=== PATIENT | male | born 1995 | race American Indian/Alaskan Native ===

== ENCOUNTER 2021-05-28 22:35 | Emergency (ER) | payer SELFPAY ==
--- NOTE | 2021-05-29 00:22 | Emergency Department Report ---
ED Lower Extremity HPI - General Chief Complaint: Extremity Injury, Lower Stated Complaint: KNEE PAIN Time Seen by Provider: 05/29/21 00:10 Source: patient Mode of arrival: Ambulatory Limitations: No Limitations - History of Present Illness Initial Comments: Patient is a 26-year-old male that presents emergency room with complaints of left knee pain. Patient states it started 24 hours ago. Patient states the pain is worsening. Patient states he is unable to walk normally. Patient states walking causes him pain. Patient states he is only used the bandages. Patient states he has not taken ibuprofen or Tylenol. Patient denies other injury. Patient states when the injury happened he fell to his knee. Patient denies other trauma. Patient denies other injury. Patient denies loss of consciousness. Patient denies recent travel. Patient denies recent international travel. Patient denies exposure to the novel coronavirus. Patient denies sick contacts. Patient denies fever and chills. Patient denies cough. Patient denies diarrhea. Patient denies coming in contact with anybody with symptoms of the novel coronavirus. Patient states she has not vaccinated gets COVID-19. Complaint: knee injury -: Sudden, days(s) Injury: Knee: Left Type of Injury: eversion Place: street/outdoors Severity: severe Severity scale (0 -10): 10 Improves With: rest Worsens With: movement, palpation Associated Symptoms: snap/pop sensation, able to partially bear weight Treatments Prior to Arrival: bandage - Related Data Previous Rx's Medication Instructions Recorded Last Taken Type Ibuprofen [Motrin 800 MG tab] 800 mg PO Q8HR PRN #30 tablet 06/17/15 Unknown Rx Allergies Allergy/AdvReac Type Severity Reaction Status Date / Time No Known Allergies Allergy Unverified 06/17/15 14:54 ED Review of Systems ROS: Stated complaint: KNEE PAIN Other details as noted in HPI Comment: All other systems reviewed and negative ED Past Medical Hx - Past Medical History Previous Medical History?: No - Surgical History Past Surgical History?: No - Family History Family history: no significant - Social History Smoking Status: Never Smoker Substance Use Type: None - Medications Home Medications: Home Medications Medication Instructions Recorded Confirmed Last Taken Type Ibuprofen [Motrin 800 MG tab] 800 mg PO Q8HR PRN #30 tablet 06/17/15 Unknown Rx ED Physical Exam - General Limitations: No Limitations General appearance: alert, in no apparent distress - Head Head exam: Present: atraumatic, normocephalic - Eye Eye exam: Present: normal appearance - ENT ENT exam: Present: mucous membranes moist - Neck Neck exam: Present: normal inspection - Respiratory Respiratory exam: Present: normal lung sounds bilaterally. Absent: respiratory distress - Cardiovascular Cardiovascular Exam: Present: regular rate, normal rhythm. Absent: systolic murmur, diastolic murmur, rubs, gallop - GI/Abdominal GI/Abdominal exam: Present: soft, normal bowel sounds - Rectal Rectal exam: Present: deferred - Extremities Exam Extremities exam: Present: normal inspection, tenderness (Over the left knee.), normal capillary refill. Absent: pedal edema, joint swelling, calf tenderness - Back Exam Back exam: Present: normal inspection - Neurological Exam Neurological exam: Present: alert, oriented X3 - Psychiatric Psychiatric exam: Present: normal affect, normal mood - Skin Skin exam: Present: warm, dry, intact, normal color. Absent: rash ED Course Vital Signs 05/29/21 00:00 Temperature 98.3 F Pulse Rate 70 Respiratory 18 Rate Blood Pressure 118/67 O2 Sat by Pulse 99 Oximetry - Reevaluation(s) Reevaluation #1: I discussed all results and clinical findings with patient. I discussed plan of care with patient. Patient agrees with plan of care. Patient is stable for discharge. Patient will be discharged home. Patient given discharge instructions. Patient voiced understanding of discharge instructions. 05/29/21 02:35 ED Lower Extremity MDM - Radiology Data Radiology results: report reviewed, image reviewed Left knee, 3 views HISTORY: Left knee pain COMPARISON: None FINDINGS: No acute fracture. There is mild patella audrey, which is nonspecific. This could be chronic, though recommend clinical correlation for patellar tendon injury. Nonspecific small joint effusion. - Medical Decision Making Patient is a 26-year-old male that presents emergency room with complaints of left knee pain. Patient fell after twisting his knee. Patient fell onto his left knee. Patient had a knee x-ray. Patient's left knee x-ray was negative for acute findings. Patient denies having any other complaints or injury. Patient had reassuring vital signs. Patient not require further emergency medical service. Patient will require an orthopedic follow-up. Patient not require inpatient service. Patient stable for discharge. Patient discharged home. I discussed all results and clinical findings with patient. I discussed plan of care with patient. Patient agrees with plan of care. Patient is stable for discharge. Patient will be discharged home. Patient given discharge instructions. Patient voiced understanding of discharge instructions. - Differential Diagnosis Knee pain, sprain, strain, fracture Critical care attestation.: If time is entered above; I have spent that time in minutes in the direct care of this critically ill patient, excluding procedure time. ED Disposition Clinical Impression: Knee pain, left Qualifiers: Chronicity: acute Qualified Code(s): M25.562 - Pain in left knee Left knee sprain Qualifiers: Encounter type: initial encounter Involved ligament of knee: unspecified ligament Qualified Code(s): S83.92XA - Sprain of unspecified site of left knee, initial encounter Disposition: HOME / SELF CARE / HOMELESS Is pt being admited?: No Does the pt Need Aspirin: No Condition: Stable Instructions: Acute Knee Pain, Adult, Knee Sprain, Adult, [id number] Additional Instructions: Patient to follow-up with primary care in 2 to 3 days. Patient to follow-up with orthopedist in 2 to 3 days. Patient to rest. Patient to increase water. Patient to avoid strenuous exercise or heavy lifting until cleared by orthopedist. Patient to take Tylenol or ibuprofen as needed for pain. Patient to return to the ER if condition worsens, changes or new symptoms arise. Referrals: TANESHA DOSHI MD [Staff Physician] - 2-3 Days ABRAHAM RAMOS MD [Staff Physician] - 2-3 Days Time of Disposition: 02:39
--- NOTE | 2021-05-29 02:25 | XRay Report ---
Left knee, 3 views HISTORY: Left knee pain COMPARISON: None FINDINGS: No acute fracture. There is mild patella audrey, which is nonspecific. This could be chronic, though recommend clinical correlation for patellar tendon injury. Nonspecific small joint effusion. Signer Name: Suman Garcia MD Signed: 05/29/2021 2:20 AM Workstation Name: [id number]
[2021-05-29 03:25] VITALS: BP 124/70
== END 2021-05-29 03:27 | disposition home or self-care (01) ==
LOC: ED 22:35
DX: S83.92XA Sprain of unspecified site of left knee, initial encounter (principal); M25.562 Pain in left knee; X58.XXXA Exposure to other specified factors, initial encounter; Y93.89 Activity, other specified; Y92.89 Other specified places as the place of occurrence of the external cause; Y99.8 Other external cause status
CPT/HCPCS: 99283